=== PATIENT | female | born 1995 | race African-American/Black ===

== ENCOUNTER 2020-07-10 09:19 | Emergency (ER) | payer MEDICAID ==
[~2020-07-10] VITALS: Ht 172.7 cm; Wt 65.3 kg
[2020-07-10 09:44] VITALS: BP 125/91
--- NOTE | 2020-07-10 09:48 | NUR ---
ED Nurse Note: Patient walked in to ER reported epigastric pain, burning sensations for 2 days not releived by acid reducers medications. Patient AAO x4, VSS at this time.
--- NOTE | 2020-07-10 10:07 | Emergency Room Report ---
History of Present Illness General Chief Complaint: Pain Source: Patient Present Illness HPI Patient is a 24-year-old female presents for increased chest discomfort. Reports having increased burning sensation to the left side of her chest. Associated with rapid heartbeat. Denies any prior history of anemia. Pain had been present for 2 days. Have had been persistent despite antacids. Patient takes oral contraceptives and had recently switched brands. Denies any cough or shortness of breath. 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 Patient History Past Medical History: see triage record Now: No Reviewed Nursing Documentation: PMH: Agreed; PSxH: Agreed Nursing Documentation-PMH Past Medical History: No Stated History Review of Systems All Other Systems: negative except mentioned in HPI Physical Exam Vital Signs Date Time Temp Pulse Resp B/P (MAP) Pulse Ox O2 Delivery O2 Flow Rate FiO2 07/10/20 09:27 97.0 84 16 125/91 (102) 99 Room Air Sp02 EP Interpretation: reviewed, normal General Appearance: normal inspection, well appearing, no apparent distress, alert, GCS 15 Head: atraumatic ENT: normal ENT inspection, hearing grossly normal, normal voice, other - Postsurgical changes to the chin and left cheek. 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 Differential diagnosis include was not limited to myocardial infarction, pericarditis, reflux esophagitis, asthma, pneumonia among others. Because of complexity of patient's case laboratory tests and imaging studies were ordered. Chest x-ray 1 view interpreted by me showed normal cardiac size without evident infiltrate somewhat hyperinflated. EKG Diagnostic Results Rate: normal - 70 Rhythm: NSR ST Segments: no acute changes Last Vital Signs Date Time Temp Pulse Resp B/P (MAP) Pulse Ox O2 Delivery O2 Flow Rate FiO2 07/10/20 09:44 97.0 16 125/91 99 Room Air 07/10/20 09:27 84 Referrals: [facility] (PCP) Cabrera Ohara MD Jul 10, 2020 10:07
--- NOTE | 2020-07-10 10:11 | NUR ---
ED Nurse Note: IV line was established on left AC 20 ga, blood and urine collected sent to lab
--- NOTE | 2020-07-10 10:23 | NUR ---
ED Nurse Note: X ray at bed side
[2020-07-10 10:27] LABS: APPEARANCE,URINE CLEAR; BILIRUBIN, URINE NEGATIVE (NEGATIVE); GLUCOSE, URINE (UA) NEGATIVE (NEGATIVE); KETONES,URINE NEGATIVE (NEGATIVE); LEUKOCYTE ESTERASE ,URINE 3+ (NEGATIVE); NITRITE,URINE NEGATIVE (NEGATIVE); PH,URINE 6 (4.5-8.0); PROTEIN,URINE NEGATIVE (NEGATIVE); UROBILINOGEN,URINE NORMAL MG/DL (0.0-1.0)
[2020-07-10 10:34] LABS: COLOR,URINE YELLOW
[2020-07-10 10:39] LABS: ANION GAP 7 mmol/L (5-15); BLOOD UREA NITROGEN 12 mg/dL (7-18); CALCIUM 8.7 MG/DL (8.5-10.1); CARBON DIOXIDE 26 MMOL/L (21-32); CHLORIDE 104 MMOL/L (98-107); POTASSIUM 3.7 MMOL/L (3.5-5.1); SODIUM 137 MMOL/L (136-145)
[2020-07-10 10:43] LABS: ALANINE AMINOTRANSFERASE 30 U/L (12-78); ALKALINE PHOSPHATASE 48 U/L (46-116); ASPARTATE AMINO TRANSFERASE 26 U/L (15-37); BILIRUBIN,TOTAL 0.9 MG/DL (0.2-1.0)
[2020-07-10 10:46] LABS: HEMATOCRIT 38.5 % (37.0-47.0); MEAN CORPUSCULAR VOLUME 94 FL (80-99); PLATELET COUNT 170 K/UL (150-450); WHITE BLOOD COUNT 3.1 K/UL (4.8-10.8)
--- NOTE | 2020-07-10 11:26 | NUR ---
ED Nurse Note: patient was swabed for COVID sent to lab
[2020-07-10] MEDS ORDERED: Omnipaque 350 100ml vial INJ PRN (11:30)
--- NOTE | 2020-07-10 13:45 | Diagnostic Imaging Report ---
ndication: Chest pain and chest discomfort Technique: IV administration nonionic contrast. Spiral acquisitions obtained from the lung bases to the lung apices. Multiplanar and 3-D reconstructions were generated. Total dose length product . 3 mGycm. CTDIvol(s) one, 62, 5 mGy. Dose reduction achieved using automated exposure control Comparison: None Findings: The pulmonary arteries are adequately opacified. No intraluminal filling defects or other findings to suggest acute pulmonary embolus are identified. Normal caliber pulmonary arteries. No evidence of right ventricular dilatation. No evidence of thoracic aortic aneurysm or dissection. Normal caliber and branching anatomy of the great neck vessels. Normal caliber of the upper abdominal visceral vessels. The left lung base demonstrates some posterior dependent atelectatic changes. Lungs are otherwise clear. No infiltrates, effusions, masses, congestion, or nodules are demonstrated. No mediastinal or hilar mass or adenopathy. The thyroid is unremarkable. No axillary or chest wall mass or adenopathy. The included upper abdominal anatomy is unremarkable. Impression: Negative The CT scanner at [facility] is accredited by the [employer] and the scans are performed using protocols designed to limit radiation exposure to as low as reasonably achievable to attain images of sufficient resolution adequate for diagnostic evaluation.
[2020-07-10] MEDS ORDERED: ALBUTEROL SULF8.5 G1 INH (13:47)
[2020-07-10 13:57] VITALS: BP 125/91
--- NOTE | 2020-07-10 14:28 | NUR ---
ER DISCHARGE NOTE: Patient is cleared to be discharged per ERMD, pt is aox4, on room air, with stable vital signs. pt was given dc and prescription instructions, pt was able to verbalize understanding, pt id band and iv site removed without complications. pt is able to ambulate with steady gait. pt took all belongings.
--- NOTE | 2020-07-10 17:30 | Diagnostic Imaging Report ---
Indication: Shortness of breath Technique: One view of the chest Comparison: none Findings: Lungs and pleural spaces are clear. Heart size is normal. Impression: No acute process
--- NOTE | 2020-07-12 16:13 | Cardiology Report ---
APPROVED REPORT EKG Measurement Heart [id number] <Conclusion> Normal sinus rhythm Normal ECG
== END 2020-07-10 13:57 | disposition home or self-care (01) ==
LOC: EMR 09:50
DX: R07.9 Chest pain, unspecified (principal); Z91.011 Allergy to milk products; Z91.013 Allergy to seafood; R06.02 Shortness of breath
CPT/HCPCS: 36415; 71045; 71275; 80053; 81003; 81025; 83690; 84484; 85007; 85025; 85379; 85610; 85730; 93005; Q9967; U0002; Z7502; 99284

== ENCOUNTER 2020-07-17 11:48 | Emergency (ER) | payer MEDICAID ==
[~2020-07-17] VITALS: Ht 172.7 cm; Wt 65.3 kg
[~2020-07-17 11:48] MED LIST: ALBUTEROL SULF8.5 G1 INH
[2020-07-17 12:01] VITALS: BP 113/71
--- NOTE | 2020-07-17 12:01 | NUR ---
ED Nurse Note: Pt walked in to ED for follow up evaluation. Pt also c/o intermittent left chest pain 12/05. Per pt, she was trying to make follow up appointment with PMD but not available. AAOx4, verbally responsive. No SOB, on room air. ERMD at bedside.
--- NOTE | 2020-07-17 12:21 | Emergency Room Report ---
History of Present Illness General Chief Complaint: General Complaint Source: Patient Present Illness HPI Disclaimer: Please note that this report is being documented using Recorded FutureON technology. This can lead to erroneous entry secondary to incorrect interpretation by the dictating instrument. HPI: 24-year-old female presents for evaluation of chest pain. Seen in the emergency department last week complaining of palpitations and chest tightness. Labs were within normal limits and CTA unremarkable which she described as inflammation. No PE or pneumonia was identified. Labs show lymphopenia which the patient was told to follow-up with her PMD. PMD unable to see patient and referred her back to the ER for persistent chest pain. She states her albuterol inhaler has been providing relief but only lasting 4 to 6 hours after which she needs another dose. Sometimes will still have palpitations. She currently ti es any shortness of breath or chest pain at time of exam. Denies fever, chills, sore throat, nasal congestion, cough, vomiting, diarrhea, dysuria, hematuria or other symptoms. 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 EOMI. Cardiovascular: RRR. S1 and S2 normal. No murmur appreciated Resp: Normal work of breathing. No cough, wheezing or crackles appreciated Abdomen: Abdomen is soft, nondistended. Nontender Skin: Intact. No abrasions, laceration or rash over the exposed skin MSK: Normal tone and bulk. Moving all extremities. No obvious deformity. Neuro: Awake and alert. Mentating appropriately. Medical Decision Making Diagnostic Impression: Primary Impression: Nonspecific chest pain ER Course 24-year-old female presents for evaluation of persistent chest pain. Differential includes is not limited to asthma, GERD, arrhythmia, palpitations, electrolyte abnormality, anemia, ACS, pneumonia, PE. Given the patient's recent CTA low concern for pneumonia or PE. EKG nonischemic. Labs including troponin unremarkable. Patient denies respiratory symptoms. Did not repeat x-ray given the recent CTA. Again shows mild leukopenia which she can follow-up on an outpatient basis. Improved from last time. She is satisfied with this result. Instructed to return with new or worsening symptoms. Laboratory Tests Test 07/17/20 12:35 White Blood Count 4.0 K/UL (4.8-10.8) L Red Blood Count 4.25 M/UL (4.20-5.40) Hemoglobin 13.2 G/DL (12.0-16.0) Hematocrit 40.8 % (37.0-47.0) Mean Corpuscular Volume 96 FL (80-99) Mean Corpuscular Hemoglobin 31.1 PG (27.0-31.0) H Mean Corpuscular Hemoglobin Concent 32.4 G/DL (32.0-36.0) Red Cell Distribution Width 12.0 % (11.6-14.8) Platelet Count 153 K/UL (150-450) Mean Platelet Volume 9.4 FL (6.5-10.1) Neutrophils (%) (Auto) 54.7 % (45.0-75.0) Lymphocytes (%) (Auto) 31.6 % (20.0-45.0) Monocytes (%) (Auto) 9.8 % (1.0-10.0) Eosinophils (%) (Auto) 2.6 % (0.0-3.0) Basophils (%) (Auto) 1.4 % (0.0-2.0) Sodium Level 138 MMOL/L (136-145) Potassium Level 3.9 MMOL/L (3.5-5.1) Chloride Level 105 MMOL/L (98-107) Carbon Dioxide Level 26 MMOL/L (21-32) Anion Gap 7 mmol/L (5-15) Blood Urea Nitrogen 13 mg/dL (7-18) Creatinine 0.9 MG/DL (0.55-1.30) Estimated Glomerular Filtration Rate > 60 mL/min (>60) Glucose Level 69 MG/DL (74-106) L Calcium Level 8.8 MG/DL (8.5-10.1) Troponin I 0.004 ng/mL (0.000-0.056) EKG Diagnostic Results Troponin ordered: Yes When was troponin ordered?: Jul 17, 2020 EKG Time: 12:25 Rate: normal Rhythm: NSR ST Segments: no acute changes Other Impression Sinus rhythm, normal axis, normal intervals, QTC 4 1 6 ms, no ST segment changes. Rhythm Strip Diag. Results Rhythm Strip Time: 12:25 EP Interpretation: yes Rate: 80s Rhythm: NSR, no PVC's, no ectopy Last Vital Signs Date Time Temp Pulse Resp B/P (MAP) Pulse Ox O2 Delivery O2 Flow Rate FiO2 07/17/20 11:55 96.8 98 17 113/71 (85) 99 Room Air Disposition: HOME, SELF-CARE Condition: Stable Nacho Lopes MD Jul 17, 2020 12:21
[2020-07-17 12:59] LABS: BASOPHILS % (AUTO) 1.4 % (0.0-2.0); EOSINOPHILS % (AUTO) 2.6 % (0.0-3.0); HEMATOCRIT 40.8 % (37.0-47.0); HEMOGLOBIN 13.2 G/DL (12.0-16.0); LYMPHOCYTES % (AUTO) 31.6 % (20.0-45.0); MEAN CORPUSCULAR VOLUME 96 FL (80-99); MONOCYTES % (AUTO) 9.8 % (1.0-10.0); NEUTROPHILS % (AUTO) 54.7 % (45.0-75.0); PLATELET COUNT 153 K/UL (150-450); RED BLOOD COUNT 4.25 M/UL (4.20-5.40)
[2020-07-17 13:12] LABS: ANION GAP 7 mmol/L (5-15); BLOOD UREA NITROGEN 13 mg/dL (7-18); CALCIUM 8.8 MG/DL (8.5-10.1); CARBON DIOXIDE 26 MMOL/L (21-32); CHLORIDE 105 MMOL/L (98-107); CREATININE 0.9 MG/DL (0.55-1.30); POTASSIUM 3.9 MMOL/L (3.5-5.1); SODIUM 138 MMOL/L (136-145)
[2020-07-17 13:30] VITALS: BP 118/69
--- NOTE | 2020-07-17 13:30 | NUR ---
ED Nurse Note: Pt cleared by ERMD for discharge. DC instructions was given and explained to pt and verbalized understanding of teachings. All medical deviecs such as ID band and IV line removed. Pt is AAO x4, ambulatory and left with all personal belongings.
--- NOTE | 2020-07-19 20:41 | Cardiology Report ---
APPROVED REPORT EKG Measurement Heart [id number] <Conclusion> Normal sinus rhythm Nonspecific T wave abnormality Abnormal ECG
== END 2020-07-17 13:31 | disposition home or self-care (01) ==
LOC: EMR 12:10
DX: R07.9 Chest pain, unspecified (principal); J45.909 Unspecified asthma, uncomplicated; E73.9 Lactose intolerance, unspecified; Z91.013 Allergy to seafood
CPT/HCPCS: 36415; 80048; 84484; 85025; 93005; Z7502; 99284

== ENCOUNTER 2020-10-20 19:26 | Emergency (ER) | payer MEDICAID ==
[~2020-10-20] VITALS: Ht 170.2 cm; Wt 65.8 kg
--- NOTE | 2020-10-20 19:40 | NUR ---
ED Nurse Note: Patient walked in the ED with complaints of lower abdominal pain, N/V , body aches and chills, headache x one day. patient vomited a total of four times. LMP four weeks ago. Patient is AOx4, calm.
--- NOTE | 2020-10-20 20:12 | Emergency Room Report ---
History of Present Illness General Chief Complaint: Vomiting Source: Patient Present Illness HPI Patient is a 24-year-old female denies any significant past medical history who presents to the emergency room complaining of generalized body aches, abdominal pain, nausea, several episodes of nonbilious nonbloody vomitus and mild generalized headache. Patient states the symptoms began last night. She denies any fever but complains of chills and feeling hot. Patient denies any chest pain, shortness of breath or cough. She denies any dysuria or hematuria. 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 COVID-19 Screening: Negative COVID-19 COVID-19 Testing [place] [facility] [place] History Last Menstrual Period: august 2020 Reviewed Nursing Documentation: PMH: Agreed; PSxH: Agreed Nursing Documentation-PMH Past Medical History: No History, Except For Hx Asthma: Yes Review of Systems All Other Systems: negative except mentioned in HPI Physical Exam Vital Signs Date Time Temp Pulse Resp B/P (MAP) Pulse Ox O2 Delivery O2 Flow Rate FiO2 10/20/20 19:36 99.0 95 18 123/78 (93) 95 Room Air Sp02 EP Interpretation: reviewed, normal General Appearance: no apparent distress, alert, GCS 15, non-toxic Head: normocephalic, atraumatic Eyes: bilateral eye normal inspection, bilateral eye PERRL ENT: hearing grossly normal, normal pharynx, no angioedema, normal voice Neck: full range of motion, supple/symm/no masses Respiratory: chest non-tender, lungs clear, normal breath sounds, speaking full sentences Cardiovascular #1: regular rate, rhythm, no edema Gastrointestinal: other - Diffuse lower abdominal pain with no guarding or rebound Rectal: deferred Genitourinary: no CVA tenderness Musculoskeletal: normal range of motion Neurologic: buffer chrome III-XII nml as tested, oriented x3 Psychiatric: no suicidal/homicidal ideation Skin: no rash Lymphatic: no adenopathy Medical Decision Making Diagnostic Impression: Primary Impression: Enteritis ER Course Patient given IV fluids, Pepcid and Toradol. On reevaluation she states that she feels improved. Her labs demonstrate no significant acute abnormalities. CT demonstrates enteritis. Patient is nontoxic-appearing. Vital signs have been stable. After discussing risks and benefits of further diagnostics, treatment plans, as well as indications for and risks of admission, the patient is agreeable to being discharged home. I have explained that their evaluation and treatment in the emergency department today is an important step towards them achieving better health but that their evaluation today is not intended to replace further evaluation and treatment by a physician in their local clinic. I have explained that while the current findings suggest no immediate life threatening emergency they will require further evaluation and treatment by a physician of their choice in their area. They understand that it will be ne cessary for them to review the final reports of their ED visit with their clinic physician. We have reviewed indications for return to the Emergency Department. I have explained that additional time may need to pass and/or additional testing as an outpatient may be necessary before a definitive diagnosis can be made. They tell me they are willing to follow up as instructed within the timeframe I recommend. They appear to understand what we discussed. Additionally they understand that if they are unable to be seen by an outpatient physician they are welcome, and in fact should, return to the Emergency Department for a repeat evaluation. The patient is stable at time of discharge. Laboratory Tests Test 10/20/20 19:35 10/20/20 20:25 Urine Color Pale yellow Urine Appearance Clear Urine pH 6 (4.5-8.0) Urine Specific [place] 1.005 (1.005-1.035) Urine Protein Negative (NEGATIVE) Urine Glucose (UA) Negative (NEGATIVE) Urine Ketones Negative (NEGATIVE) Urine Blood Negative (NEGATIVE) Urine Nitrite Negative (NEGATIVE) Urine Bilirubin Negative (NEGATIVE) Urine Urobilinogen Normal MG/DL (0.0-1.0) Urine Leukocyte Esterase Negative (NEGATIVE) Urine HCG, Qualitative Negative (NEGATIVE) Urine Opiates Screen Negative (NEGATIVE) Urine Barbiturates Screen Negative (NEGATIVE) Phencyclidine (PCP) Screen Negative (NEGATIVE) Urine Amphetamines Screen Negative (NEGATIVE) Urine Benzodiazepines Screen Negative (NEGATIVE) Urine Cocaine Screen Negative (NEGATIVE) Urine Marijuana (THC) Screen Negative (NEGATIVE) White Blood Count 4.0 K/UL (4.8-10.8) L Red Blood Count 4.47 M/UL (4.20-5.40) Hemoglobin 13.5 G/DL (12.0-16.0) Hematocrit 40.3 % (37.0-47.0) Mean Corpuscular Volume 90 FL (80-99) Mean Corpuscular Hemoglobin 30.3 PG (27.0-31.0) Mean Corpuscular Hemoglobin Concent 33.6 G/DL (32.0-36.0) Red Cell Distribution Width 13.2 % (11.6-14.8) Platelet Count 148 K/UL (150-450) L Mean Platelet Volume 9.5 FL (6.5-10.1) Neutrophils (%) (Auto) 84.9 % (45.0-75.0) H Lymphocytes (%) (Auto) 6.9 % (20.0-45.0) L Monocytes (%) (Auto) 6.4 % (1.0-10.0) Eosinophils (%) (Auto) 0.1 % (0.0-3.0) Basophils (%) (Auto) 1.8 % (0.0-2.0) Sodium Level 139 MMOL/L (136-145) Potassium Level 3.7 MMOL/L (3.5-5.1) Chloride Level 105 MMOL/L (98-107) Carbon Dioxide Level 25 MMOL/L (21-32) Anion Gap 9 mmol/L (5-15) Blood Urea Nitrogen 11 mg/dL (7-18) Creatinine 1.0 MG/DL (0.55-1.30) Estimated Glomerular Filtration Rate > 60 mL/min (>60) Glucose Level 101 MG/DL (74-106) Calcium Level 8.4 MG/DL (8.5-10.1) L Magnesium Level 2.1 MG/DL (1.8-2.4) Total Bilirubin 0.7 MG/DL (0.2-1.0) Aspartate Amino Transferase (AST) 26 U/L (15-37) Alanine Aminotransferase (ALT) 22 U/L (12-78) Alkaline Phosphatase 56 U/L (46-116) Total Protein 8.1 G/DL (6.4-8.2) Albumin 3.4 G/DL (3.4-5.0) Globulin 4.7 g/dL Albumin/Globulin Ratio 0.7 (1.0-2.7) L Lipase 179 U/L (73-393) Last Vital Signs Date Time Temp Pulse Resp B/P (MAP) Pulse Ox O2 Delivery O2 Flow Rate FiO2 10/20/20 19:36 99.0 95 18 123/78 (93) 95 Room Air Disposition: HOME, SELF-CARE Condition: Stable Scripts Famotidine* (Pepcid 20mg tablet*) 20 Mg Tablet 20 MG ORAL TWICE A DAY for Gerd, #60 TAB 0 Refills Prov: Zulema Gutierres M.D. 10/20/20 Ondansetron* (ZOFRAN*) 4 Mg Tablet 4 MG ORAL Q6H PRN for Nausea & Vomiting, #14 TAB Prov: Zulema Gutierres M.D. 10/20/20 Referrals: [facility] (PCP) Additional Instructions: The patient was provided with discharge instructions, notified to follow-up with a primary care doctor and or specialist in the next 24-48 hours, and to return to the ED if they have worsening of their symptoms. Please note that this report is being documented using Tagged technology. This can lead to erroneous entry secondary to incorrect interpretation by the dictating instrument. Zulema Gutierres M.D. Oct 20, 2020 20:12
[2020-10-20] MEDS ORDERED: Ketorolac 30mg Inj IV ONE (20:15)
[2020-10-20 20:22] LABS: APPEARANCE,URINE CLEAR; BILIRUBIN, URINE NEGATIVE (NEGATIVE); COLOR,URINE PALE YELLOW; GLUCOSE, URINE (UA) NEGATIVE (NEGATIVE); KETONES,URINE NEGATIVE (NEGATIVE); LEUKOCYTE ESTERASE ,URINE NEGATIVE (NEGATIVE); NITRITE,URINE NEGATIVE (NEGATIVE); PH,URINE 6 (4.5-8.0); PROTEIN,URINE NEGATIVE (NEGATIVE); UROBILINOGEN,URINE NORMAL MG/DL (0.0-1.0)
[2020-10-20 20:35] LABS: BASOPHILS % (AUTO) 1.8 % (0.0-2.0); EOSINOPHILS % (AUTO) 0.1 % (0.0-3.0); HEMATOCRIT 40.3 % (37.0-47.0); HEMOGLOBIN 13.5 G/DL (12.0-16.0); LYMPHOCYTES % (AUTO) 6.9 % (20.0-45.0); MEAN CORPUSCULAR VOLUME 90 FL (80-99); MONOCYTES % (AUTO) 6.4 % (1.0-10.0); NEUTROPHILS % (AUTO) 84.9 % (45.0-75.0); PLATELET COUNT 148 K/UL (150-450); RED BLOOD COUNT 4.47 M/UL (4.20-5.40); RED CELL DISTRIBUTION WIDTH 13.2 % (11.6-14.8)
[2020-10-20 20:47] LABS: ANION GAP 9 mmol/L (5-15); BLOOD UREA NITROGEN 11 mg/dL (7-18); CALCIUM 8.4 MG/DL (8.5-10.1); CARBON DIOXIDE 25 MMOL/L (21-32); CHLORIDE 105 MMOL/L (98-107); POTASSIUM 3.7 MMOL/L (3.5-5.1); SODIUM 139 MMOL/L (136-145)
[2020-10-20 20:51] LABS: ALANINE AMINOTRANSFERASE 22 U/L (12-78); ALBUMIN 3.4 G/DL (3.4-5.0); ALBUMIN/GLOBULIN RATIO 0.7 (1.0-2.7); ALKALINE PHOSPHATASE 56 U/L (46-116); ASPARTATE AMINO TRANSFERASE 26 U/L (15-37); BILIRUBIN,TOTAL 0.7 MG/DL (0.2-1.0)
--- NOTE | 2020-10-20 20:52 | Diagnostic Imaging Report ---
EXAM: CT Abdomen and Pelvis Without Intravenous Contrast CLINICAL HISTORY: ABD PAIN TECHNIQUE: Axial computed tomography images of the abdomen and pelvis without intravenous contrast. CTDI is 4 mGy and DLP is 220 mGy-cm. One or more of the following dose reduction techniques were used: automated exposure control, adjustment of the mA and/or kV according to patient size, use of iterative reconstruction technique. Coronal and sagittal reformatted images were created and reviewed. COMPARISON: No relevant prior studies available. FINDINGS: Limitations: Study limited due to lack of IV contrast. Lung bases: Unremarkable. No mass. No consolidation. ABDOMEN: Liver: Unremarkable. Gallbladder and bile ducts: Unremarkable. No calcified stones. No ductal dilation. Pancreas: Unremarkable. No ductal dilation. Spleen: Unremarkable. No splenomegaly. Adrenals: Unremarkable. No mass. Kidneys and ureters: Unremarkable. No obstructing stones. No hydronephrosis. Stomach and bowel: Distended stomach could be a cause for pain; consider decompression. Liquid small and large bowel contents could be incidental or could represent an infectious or inflammatory enteritis or enterocolitis in the proper context. PELVIS: Appendix: No findings to suggest acute appendicitis. Bladder: Unremarkable. No stones. Reproductive: Unremarkable as visualized. ABDOMEN and PELVIS: Intraperitoneal space: Unremarkable. No free air. No significant fluid collection. Bones/joints: No acute fracture. No dislocation. Soft tissues: Unremarkable. Vasculature: Unremarkable. No abdominal aortic aneurysm. Lymph nodes: Unremarkable. No enlarged lymph nodes. IMPRESSION: 1. Study limited due to lack of IV contrast. 2. Distended stomach could be a cause for pain; consider decompression. 3. Liquid small and large bowel contents could be incidental or could represent an infectious or inflammatory enteritis or enterocolitis in the proper context.
[2020-10-20] MEDS ORDERED: ZOFRAN4 M3 ORAL (20:56)
[2020-10-20] MEDS ORDERED: FAMOTIDINE20 MG ORAL (20:56)
[2020-10-20 21:49] VITALS: BP 117/68
[2020-10-21] MEDS ORDERED: DICYCLOMINE HCL10 MG ORAL (21:26)
[2020-10-21] MEDS ORDERED: IMODIUM2 MG ORAL (21:26)
== END 2020-10-20 21:55 | disposition home or self-care (01) ==
LOC: EMR 19:53
DX: K52.9 Noninfective gastroenteritis and colitis, unspecified (principal); Z91.011 Allergy to milk products; Z91.013 Allergy to seafood
CPT/HCPCS: 36415; 74176; 80053; 80307; 81003; 81025; 83690; 83735; 85025; 96361; 96374; 96375; J1885; J2405; J7030; S0028; Z7502; 99284

== ENCOUNTER 2020-10-21 20:51 | Emergency (ER) | payer MEDICAID ==
[~2020-10-21] VITALS: Ht 170.2 cm; Wt 65.8 kg
[~2020-10-21 20:51] MED LIST changes: +FAMOTIDINE20 MG ORAL; +ZOFRAN4 M3 ORAL
[2020-10-21 21:16] VITALS: BP 127/88
--- NOTE | 2020-10-21 21:25 | Emergency Room Report ---
History of Present Illness General Chief Complaint: Diarrhea Source: Patient (Yuri Chen) Present Illness HPI 24-year-old female with no signal past medical history who was seen in [place] [facility] yesterday for abdominal pain and diarrhea is back here today for the same complaint. Patient had a full work-up done yesterday including blood work, CT scan and all within normal limits. Patient was told to follow-up primary doctor. Patient reports that she did a teledoc visit today and was told that she may be dehydrated as she has had 7 bouts of diarrhea today. Patient denies cough and congestion all URI symptoms. Patient had a negative Covid test done yesterday at [place]. Denies any fever and chills. Denies any diffuse abdominal pain. Patient abdomen is nontender. Denies any bloody diarrhea. Reports that she has been eating brat diet. Medication that was prescribed to her yesterday help with the nausea. Patient is in no distress. Denies any fatigue at this time. Patient is requesting IV fluids. Denies . Denies history of ulcerative colitis, Crohn's disease. Denies any recent travel. 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 COVID-19 Screening: Negative COVID-19 COVID-19 Testing Source: [facility] (Yuri Chen) Patient History Past Medical History: see triage record Past Surgical History: none Pertinent Family History: none Last Menstrual Period: august 2020 Now: No Immunizations: UTD Reviewed Nursing Documentation: PMH: Agreed; PSxH: Agreed (Yuri Chen) Nursing Documentation-PMH Past Medical History: No History, Except For Hx Asthma: Yes (Yuri Chen) Review of Systems All Other Systems: negative except mentioned in HPI (Yuri Chen) Physical Exam Vital Signs Date Time Temp Pulse Resp B/P (MAP) Pulse Ox O2 Delivery O2 Flow Rate FiO2 10/21/20 21:00 98.2 84 18 127/88 (101) 98 Room Air Sp02 EP Interpretation: reviewed, normal General Appearance: well appearing, alert, non-toxic Head: normocephalic, atraumatic Eyes: bilateral eye normal inspection, bilateral eye PERRL ENT: hearing grossly normal, normal pharynx, no angioedema, normal voice Neck: full range of motion, supple/symm/no masses Respiratory: lungs clear, no rhonchi, no respiratory distress, no retraction, no accessory muscle use Cardiovascular #1: no murmur Cardiovascular #2: 2+ carotid (R), 2+ carotid (L), 2+ radial (R), 2+ radial (L) Gastrointestinal: normal bowel sounds, non tender, soft, no mass, no organ omegaly, no peritonitis, no bruit, non-distended, no guarding, no hernia, no pulsatile mass, no rebound Genitourinary: no CVA tenderness Musculoskeletal: back normal Neurologic: alert, motor strength/tone normal, oriented x3, sensory intact, responsive, speech normal Psychiatric: judgement/insight normal, memory normal, mood/affect normal, no suicidal/homicidal ideation Skin: no rash Lymphatic: no adenopathy (Yuri Chen) Medical Decision Making PA Attestation All diagnoses and treatment plans were reviewed and discussed with my supervising physician Dr. Garibay (Yuri Chen) Diagnostic Impression: Primary Impression: Diarrhea Qualified Codes: R19.7 - Diarrhea, unspecified Additional Impression: Hypokalemia ER Course 24-year-old female with no signal past medical history who was seen in [place] ER yesterday for abdominal pain and diarrhea is back here today for the same complaint. Patient had a full work-up done yesterday including blood work, CT scan and all within normal limits. Patient was told to follow-up primary doctor. Patient reports that she did a teledoc visit today and was told that she may be dehydrated as she has had 7 bouts of diarrhea today. Patient denies cough and congestion all URI symptoms. Patient had a negative Covid test done yesterday at [place]. Denies any fever and chills. Denies any diffuse abdominal pain. Patient abdomen is nontender. Denies any bloody diarrhea. Reports that she has been eating brat diet. Medication that was prescribed to her yesterday help with the nausea. Patient is in no distress. Denies any fatigue at this time. Patient is requesting IV fluids. Denies . Denies history of ulcerative colitis, Crohn's disease. Denies any recent travel. Ddx considered but are not limited to: Chronic diarrhea, bacterial diarrhea, viral diarrhea, irritable bowel disease, irritable bowel syndrome Patient had full work-up done yesterday at this time no further imaging needed but he will not have significant changes with the results in the past 24 hours patient appears well, has normal vital signs. Vital signs: are WNL, pt. is afebrile H&PE are most consistent with: Diarrhea unspecified ORDERS: CBC, CMP, dicyclomine, loperamide ED INTERVENTIONS: NS bolus, dicyclomine, loperamide DISCHARGE: At this time pt. is stable for d/c to home. Will provide printed patient care instructions, and any necessary prescriptions. Care plan and follow up instructions have been discussed with the patient prior to discharge. Advised patient to continue eating brat diet, increase oral hydration especially electrolyte water, continue taking medication, follow-up with the primary care provider for stool culture, stool ova and parasite, and H. pylori testing. Also referral to jig and fixture builder may be needed to rule out other etiologies such as irritable bowel disease, irritable bowel syndrome, etc. If worsening symptoms return to the emergency room (Yuri Chen) ER Course Please see above note. Patient represented with diarrhea. Labs significant for low potassium. Potassium administered. Labs reviewed. Labs also reviewed from October 20. Discussed results with patient No medical emergency at this time. Stable for outpatient observation and treatment. Laboratory Tests Test 10/21/20 21:25 White Blood Count 4.0 K/UL (4.8-10.8) L Red Blood Count 4.38 M/UL (4.20-5.40) Hemoglobin 13.3 G/DL (12.0-16.0) Hematocrit 40.0 % (37.0-47.0) Mean Corpuscular Volume 91 FL (80-99) Mean Corpuscular Hemoglobin 30.3 PG (27.0-31.0) Mean Corpuscular Hemoglobin Concent 33.3 G/DL (32.0-36.0) Red Cell Distribution Width 12.6 % (11.6-14.8) Platelet Count 148 K/UL (150-450) L Mean Platelet Volume 10.4 FL (6.5-10.1) H Neutrophils (%) (Auto) 66.7 % (45.0-75.0) Lymphocytes (%) (Auto) 22.5 % (20.0-45.0) Monocytes (%) (Auto) 8.9 % (1.0-10.0) Eosinophils (%) (Auto) 0.9 % (0.0-3.0) Basophils (%) (Auto) 1.1 % (0.0-2.0) Sodium Level 137 MMOL/L (136-145) Potassium Level 3.4 MMOL/L (3.5-5.1) L Chloride Level 103 MMOL/L (98-107) Carbon Dioxide Level 26 MMOL/L (21-32) Anion Gap 8 mmol/L (5-15) Blood Urea Nitrogen 6 mg/dL (7-18) L Creatinine 0.9 MG/DL (0.55-1.30) Estimated Glomerular Filtration Rate > 60 mL/min (>60) Glucose Level 89 MG/DL (74-106) Calcium Level 8.5 MG/DL (8.5-10.1) Total Bilirubin 0.3 MG/DL (0.2-1.0) Aspartate Amino Transferase (AST) 22 U/L (15-37) Alanine Aminotransferase (ALT) 21 U/L (12-78) Alkaline Phosphatase 57 U/L (46-116) Total Protein 7.9 G/DL (6.4-8.2) Albumin 3.2 G/DL (3.4-5.0) L Globulin 4.7 g/dL Albumin/Globulin Ratio 0.7 (1.0-2.7) L (Hipolito Garibay MD) Last Vital Signs Date Time Temp Pulse Resp B/P (MAP) Pulse Ox O2 Delivery O2 Flow Rate FiO2 10/21/20 21:16 98.2 18 127/88 98 Room Air 10/21/20 21:00 84 (Yuri Chen) Last Vital Signs Date Time Temp Pulse Resp B/P (MAP) Pulse Ox O2 Delivery O2 Flow Rate FiO2 10/21/20 22:57 98.2 20 125/78 100 Room Air 10/21/20 21:00 84 Status: improved (Hipolito Garibay MD) Disposition: HOME, SELF-CARE Condition: Stable Scripts Loperamide HCl (Loperamide) 2 Mg Capsule 2 MG ORAL Q8HR, #10 CAP 0 Refills Prov: Yuri Chen 10/21/20 Dicyclomine Hcl* (DICYCLOMINE HCL*) 10 Mg Capsule 10 MG ORAL TID, #10 CAP Prov: Yuri Chen 10/21/20 Referrals: NON PHYSICIAN (PCP) Patient Instructions: Diarrhea, Adult Additional Instructions: Advised patient to continue eating brat diet, increase oral hydration especially electrolyte water, continue taking medication, follow-up with the primary care provider for stool culture, stool ova and parasite, and H. pylori testing. Also referral to jig and fixture builder may be needed to rule out other etiologies such as irritable bowel disease, irritable bowel syndrome, etc. If worsening symptoms return to the emergency room Yuri Chen Oct 21, 2020 21:25 Hipolito Garibay MD Oct 21, 2020 21:56
[2020-10-21] MEDS ORDERED: IMODIUM2 MG ORAL (21:26)
[2020-10-21] MEDS ORDERED: DICYCLOMINE HCL10 MG ORAL (21:26)
[2020-10-21] MEDS ORDERED: Dicyclomine 10mg Cap ORAL ONE (21:30)
[2020-10-21 21:33] LABS: BASOPHILS % (AUTO) 1.1 % (0.0-2.0); EOSINOPHILS % (AUTO) 0.9 % (0.0-3.0); HEMOGLOBIN 13.3 G/DL (12.0-16.0); LYMPHOCYTES % (AUTO) 22.5 % (20.0-45.0); MEAN CORPUSCULAR VOLUME 91 FL (80-99); MONOCYTES % (AUTO) 8.9 % (1.0-10.0); NEUTROPHILS % (AUTO) 66.7 % (45.0-75.0); PLATELET COUNT 148 K/UL (150-450); RED BLOOD COUNT 4.38 M/UL (4.20-5.40); RED CELL DISTRIBUTION WIDTH 12.6 % (11.6-14.8)
[2020-10-21 21:46] LABS: ANION GAP 8 mmol/L (5-15); BLOOD UREA NITROGEN 6 mg/dL (7-18); CALCIUM 8.5 MG/DL (8.5-10.1); CARBON DIOXIDE 26 MMOL/L (21-32); CHLORIDE 103 MMOL/L (98-107); CREATININE 0.9 MG/DL (0.55-1.30); POTASSIUM 3.4 MMOL/L (3.5-5.1); SODIUM 137 MMOL/L (136-145)
[2020-10-21 21:51] LABS: ALBUMIN 3.2 G/DL (3.4-5.0); ALBUMIN/GLOBULIN RATIO 0.7 (1.0-2.7); ALKALINE PHOSPHATASE 57 U/L (46-116); ASPARTATE AMINO TRANSFERASE 22 U/L (15-37); BILIRUBIN,TOTAL 0.3 MG/DL (0.2-1.0)
[2020-10-21 22:04] LABS: ALANINE AMINOTRANSFERASE 21 U/L (12-78)
[2020-10-21 22:57] VITALS: BP 125/78
== END 2020-10-21 22:57 | disposition home or self-care (01) ==
LOC: EMR 20:59
DX: R19.7 Diarrhea, unspecified (principal); E87.6 Hypokalemia; J45.909 Unspecified asthma, uncomplicated; Z91.013 Allergy to seafood; E73.9 Lactose intolerance, unspecified
CPT/HCPCS: 36415; 80053; 85025; 96374; J7030; Z7502; 99284; J8499